=== PATIENT | female | born 1950 | race Caucasian/White ===

== ENCOUNTER → 2023-08-08 07:34 | Outpatient (REF) | payer OTHER, SELFPAY ==
[2023-08-08 08:54] LABS: Hemoglobin 9.5 g/dL (12.0-16.0)
[2023-08-08 09:23] LABS: Blood Urea Nitrogen 49 mg/dl (7-17); Calcium 8.6 mg/dl (8.4-10.2); Carbon Dioxide 28 mmol/L (22-30); Chloride 103 mmol/L (98-107); Glucose 42 mg/dl (70-99); Iron 47 ug/dl (37-170); Percent Saturation 14 % (20-50); Phosphorus 5.1 mg/dl (2.5-4.5); Potassium 4.4 mmol/L (3.5-5.1); Sodium 142 mmol/L (135-145); Total Iron Binding Capacity 327 ug/dl (265-497); eGFR 22.03
[2023-08-08 11:26] LABS: Ferritin 19.1 ng/ml (11.1-264.0)
[2023-08-09 10:26] LABS: Intact PTH 29.2 pg/ml (13.6-85.8)
== END ==
LOC: REG 07:34
PROVIDERS: ATTENDING PHYSICIAN Specialist
DX: N18.4 Chronic kidney disease, stage 4 (severe) (principal); D64.9 Anemia, unspecified
CPT/HCPCS: 36415; 80048; 82728; 83540; 83550; 83970; 84100; 85018

== ENCOUNTER → 2023-10-07 09:22 | Outpatient (REF) | payer OTHER, SELFPAY | LOC: RAD 09:22 | PROVIDERS: ATTENDING PHYSICIAN Family Medicine; OTHER PHYSICIAN Urology | DX: N13.1 Hydronephrosis with ureteral stricture, not elsewhere classified (principal); Z90.5 Acquired absence of kidney | CPT/HCPCS: 76775 ==

== ENCOUNTER → 2024-05-24 09:56 | Outpatient (REF) | payer OTHER, SELFPAY | LOC: RAD 09:56 | PROVIDERS: ATTENDING PHYSICIAN Urology; FAMILY PHYSICIAN Family Medicine | DX: R31.0 Gross hematuria (principal) | CPT/HCPCS: 74176 ==

== ENCOUNTER → 2024-07-20 07:27 | Outpatient (REF) | payer OTHER, SELFPAY ==
[2024-07-20 08:20] LABS: % Basophils 0.5 % (0-2); % Eosinophils 2.7 % (0-6); % Immature Granulocytes 0.5 % (0-0.5); % Lymphocytes 7.6 % (20.5-51.1); % Monocytes 6.9 % (1.7-9.3); % Neutrophils 81.8 % (42.2-75.2); Absolute Eosinophils 0.2 10^3/uL (0-0.7); Absolute Lymphocytes 0.6 10^3/uL (1.2-3.4); Absolute Monocytes 0.5 10^3/uL (0.1-0.6); Hematocrit 27.8 % (37.0-47.0); Hemoglobin 8.3 g/dL (12.0-16.0); Mean Corp Hgb Conc. 29.9 g/dL (33.0-37.0); Mean Corpuscular Hgb 27.9 pg (27.0-31.0); Mean Corpuscular Volume 93.6 fL (81.0-99.0); Mean Platelet Volume 10.5 fL (7.4-10.4); Nucleated Red Blood Cells % 0 %; Platelet Count 196 10^3/uL (130-400); Red Blood Cell Count 2.97 10^6/uL (4.20-5.40); Red Cell Dist. Width 15.2 % (11.5-14.5); White Blood Cell Count 7.3 10^3/uL (4.8-10.8)
[2024-07-20 08:24] LABS: INR 1.09; PT 14.5 Sec (11.4-14.6)
[2024-07-20 08:25] LABS: APTT 34.3 Sec (23.4-35.0)
[2024-07-20 09:11] LABS: ALT (SGPT) 22 U/L (0-35); AST (SGOT) 21 U/L (14-36); Alkaline Phosphatase 95 U/L (38-126); Blood Urea Nitrogen 42 mg/dl (7-17); Calcium 7.4 mg/dl (8.4-10.2); Chloride 104 mmol/L (98-107); Glucose 154 mg/dl (70-99); Iron 70 ug/dl (37-170); Sodium 142 mmol/L (135-145); Total Bilirubin 0.3 mg/dl (0.2-1.3)
[2024-07-20 09:20] LABS: Percent Saturation 22 % (20-50); Total Iron Binding Capacity 310 ug/dl (265-497)
[2024-07-20 09:21] LABS: Albumin 3.7 g/dl (3.5-5.0); Carbon Dioxide 28 mmol/L (22-30)
[2024-07-20 09:32] LABS: CEA 1.03 ng/ml
[2024-07-20 09:34] LABS: Ferritin 14.6 ng/ml (11.1-264.0)
[2024-07-20 10:05] LABS: Folate 11.3 ng/ml (2.76-20); Vitamin B12 960 pg/ml (239-931)
[2024-07-20 12:45] LABS: Glycohemoglobin (HgbA1c) 7.1 % (4.0-5.6)
== END ==
LOC: REG 07:27
PROVIDERS: ATTENDING PHYSICIAN Obstetrics & Gynecology Gynecologic Oncology; FAMILY PHYSICIAN Family Medicine
DX: C64.1 Malignant neoplasm of right kidney, except renal pelvis (principal); C51.0 Malignant neoplasm of labium majus; C18.2 Malignant neoplasm of ascending colon
CPT/HCPCS: 36415; 80053; 82378; 82607; 82728; 82746; 83036; 83540; 83550; 85025; 85610; 85730

== ENCOUNTER → 2024-08-13 11:55 | Outpatient (REF) | payer OTHER, SELFPAY ==
[2024-08-13 11:27] LABS: % Basophils 0.3 % (0-2); % Eosinophils 2.4 % (0-6); % Immature Granulocytes 0.2 % (0-0.5); % Lymphocytes 6.9 % (20.5-51.1); % Monocytes 8.3 % (1.7-9.3); % Neutrophils 81.9 % (42.2-75.2); Absolute Eosinophils 0.2 10^3/uL (0-0.7); Absolute Lymphocytes 0.5 10^3/uL (1.2-3.4); Absolute Monocytes 0.6 10^3/uL (0.1-0.6); Absolute Neutrophils 5.4 10^3/uL (1.4-6.5); Hematocrit 27.2 % (37.0-47.0); Hemoglobin 8.3 g/dL (12.0-16.0); Mean Corp Hgb Conc. 30.5 g/dL (33.0-37.0); Mean Corpuscular Hgb 28.7 pg (27.0-31.0); Mean Corpuscular Volume 94.1 fL (81.0-99.0); Mean Platelet Volume 9.9 fL (7.4-10.4); Platelet Count 197 10^3/uL (130-400); Red Blood Cell Count 2.89 10^6/uL (4.20-5.40); White Blood Cell Count 6.6 10^3/uL (4.8-10.8)
[2024-08-13 12:54] LABS: Phosphorus 4.2 mg/dl (2.5-4.5)
== END ==
LOC: OIDL 11:55
PROVIDERS: ATTENDING PHYSICIAN Internal Medicine Hematology & Oncology
DX: C64.1 Malignant neoplasm of right kidney, except renal pelvis (principal); C51.0 Malignant neoplasm of labium majus; C18.2 Malignant neoplasm of ascending colon
CPT/HCPCS: 84100; 85025

== ENCOUNTER 2024-09-11 06:06 | Inpatient (IN) | payer OTHER, SELFPAY ==
[2024-09-03 11:27] LABS: Hematocrit 31.1 % (37.0-47.0); Hemoglobin 9.2 g/dL (12.0-16.0); Mean Corp Hgb Conc. 29.6 g/dL (33.0-37.0); Mean Corpuscular Hgb 29.1 pg (27.0-31.0); Mean Corpuscular Volume 98.4 fL (81.0-99.0); Mean Platelet Volume 10.3 fL (7.4-10.4); Platelet Count 185 10^3/uL (130-400); Red Blood Cell Count 3.16 10^6/uL (4.20-5.40); Red Cell Dist. Width 16.5 % (11.5-14.5)
[2024-09-03 11:49] LABS: Iron 65 ug/dl (37-170)
[2024-09-03 12:00] LABS: Percent Saturation 23 % (20-50); Total Iron Binding Capacity 281 ug/dl (265-497)
[2024-09-03 12:31] LABS: % Basophils 0.6 % (0-2); % Eosinophils 2.6 % (0-6); % Immature Granulocytes 0.4 % (0-0.5); % Lymphocytes 7.7 % (20.5-51.1); % Monocytes 7.3 % (1.7-9.3); % Neutrophils 81.4 % (42.2-75.2); Absolute Eosinophils 0.2 10^3/uL (0-0.7); Absolute Lymphocytes 0.5 10^3/uL (1.2-3.4); Absolute Monocytes 0.5 10^3/uL (0.1-0.6); Absolute Neutrophils 5.7 10^3/uL (1.4-6.5); Nucleated Red Blood Cells % 0 %
[2024-09-03 14:08] VITALS: BMI 39.2
--- NOTE | 2024-09-10 22:32 | W.CON.GYNONC ---
Chief Complaint
-
Vulvar Ca
History of Present Illness
This is a 73�year�old woman who was referred to me by Dr. Symone Espino for concern about possible cancer in vulva. Patient's
past medical history is complicated, and is significant for obesity, back pain, asthma, diabetes, GERD, as well as prior history of
colon cancer and kidney cancer.
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
thought she saw a perineal or vulver lesion sent her to us.
she is somewhat limited in her ability to ambulate or lay down due to orthopaedic issues, cannot lay flat, typically sleeps in recliner.
uses a walker to keep steady for ambulation.
Past Medical History
Hypertension n Diabetes, Type II
Spondylolisthesis
Colonic polyps
Kidney stones/ nephrolithiasis
DJD/arthritis
Hypercholesterolemia
Asthma
Depression
Glaucoma
Osteoporosis
Obesity
Right colon ca
Rigth Kidney cancer
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
Past Surgical History n Hysterectomy in 1992
Left bunionectomy in 1974
Right hand carpal tunnel surgery in 1996
Right oopherectomy in 1996
Bilateral knee surgery in 1999
Total right knee replacement in 2001
Rotator cuff repair in 2002
Total left knee replacement in 2003
R hemicolectomy
Right nephrectomy
Medications:
aspirin�81�mg�capsule 07/16/2024 0 1�p.o.�q.�day
carvedilol�25�mg�tablet 07/16/2024 0 1�p.o.�twice�a�day (BID) Y
cyanocobalamin�(vitamin�B�12)�1,000�mcg Tab 12/16/2011 30 3 1�p.o.�q.�day
ferrous�sulfate�325�mg�(65�mg�iron)/5�mL�oral solution 07/16/2024 0 1�p.o.�q.�day
furosemide�40�mg/5�mL�(8�mg/mL)�oral solution 07/16/2024 0 1�p.o.�q.�day
hydralazine�100�mg�tablet 07/16/2024 0 1�p.o.�three�times�a day�(TID)
hydrocodone�5�mg�acetaminophen�325�mg tablet 07/16/2024 0 4�x�daily
Lantus�100�unit/mL�Sub�Q 11/05/2011 0 25�units�daily
omeprazole�40�mg�Cap,�delayed�release 11/05/2011 0 1�p.o.�q.�day
ProAir�HFA�90�mcg/actuation�Aerosol�Inhaler 11/05/2011 0 1�p.o.�q.�day
Probiotic�10�billion�cell�Cap 11/05/2011 0 1�p.o.�q.�day
rosuvastatin�20�mg�tablet
Medical History
Allergies
Allergies reflect when allergies were last updated in [facility].
aspirin Allergy (Verified 09/04/24 08:27)
Upset stomach
atorvastatin Allergy (Verified 09/04/24 08:27)
hematuria
codeine Allergy (Verified 09/04/24 08:27)
Rash
levofloxacin [From Levaquin] Allergy (Verified 09/04/24 08:27)
large PO doses upset stomach - Can only take IV form
morphine [Morphine] Allergy (Verified 09/04/24 08:27)
vomiting
oxycodone HCl [From Percocet] Allergy (Verified 09/04/24 08:27)
Rash
Penicillins Allergy (Verified 09/04/24 08:27)
Rash, TOLERATES CEPHALOSPORINS
perfume Allergy (Verified 09/04/24 08:27)
Shortness of Breath
prednisone Allergy (Verified 09/04/24 08:27)
See comments
sulfamethoxazole Allergy (Verified 09/04/24 08:27)
Rash
theophylline Allergy (Verified 09/04/24 08:27)
rapid heart beat
trimethoprim [From Bactrim] Allergy (Verified 09/04/24 08:27)
Rash
Physical Exam
Physical Exam
Physical Exam
Pelvic Examination: functional support analyst present
with significant assistance we placed her in lithotomy position
External left anterior labia with 2�3 cm fungating erythematous lesion, likely squamous cell carcinoma, superficial ,
subcutaneous tissue below that is free, tumor is mobile no other obvious lesion in right labia or perineum, clitoris normal
Normall urethra, anus.
Vagina: Normal mucosa.
Cervix and uterus are absent
Adnexa: No pelvic mass on bimanual exam
RVE: no masses or nodularity
Patient appears comfortable, in no acute distress. Appears stated age.
Head atraumatic, normocephalic. Sclera anicteric, conjunctiva pink.
No cervical, supraclavicular or axillary adenopathy.
Heart rate and rhythm regular, no murmurs, rubs or gallops.
Lungs clear without rales or rhonchi. No kyphosis.
Abdomen soft and non�tender.
Extremities without clubbing, cyanosis or edema.
Gait and stature normal. Neurologic exam grossly non�focal, no hemiplegia.
Results
-
09/03/24 10:19
[facility]
[address] [place] [address]
[phone]
Patient Name: ASHLEY CEDILLO
: 1950
Unit Number: [id number]
Age/Sex: 73/F
Patient
Location: PET
Order Provider: Doroteo Griffith MD
Exam Service Date: 08/02/24

PET Scan Report
SignedOrder #:[id number]
Exams: PT Pet Wbi W/CT Skull-thigh
CPT: 54325
Procedure: PET/CT SKULL-THIGH (FDG)
IMPRESSION:
There is hypermetabolic activity of the vulva with a max SUV of 14.6 suspicious for vulvar malignancy.
There is a small focus of mild hypermetabolic activity along the skin in the right inguinal fold, however no discrete lesion is visualized. Findings may represent a superficial infectious/inflammatory process however recommend direct visualization.
There is a 1.1 cm subcutaneous nodule within the anterior abdominal wall in the left lower quadrant which demonstrates mild hypermetabolic activity with a max SUV of 3.9. This may represent a benign injection granuloma as this is not significantly
changed in size from prior CT.
There is mild hypermetabolic activity in the paraspinal musculature and bilateral pectoralis musculature which is likely related to muscle activity.
CLINICAL INDICATION: Right kidney cancer status post right nephrectomy. History of colon cancer in 2019. Possible vulva cancer The patient is undergoing a PET/CT examination for subsequent treatment strategy.
TECHNIQUE: A PET/CT examination was performed following the intravenous injection of 10.5 mCi F-18 FDG in the left antecubital fossa at 1027. Images were acquired from the level of the skull base to the level of the mid thighs. The blood glucose
level at the time of injection measured 116 mg/dL. Axial, sagittal, and coronal fused reformatted images were obtained. Low-dose CT images were acquired for attenuation correction purposes only. Automatic exposure control radiation dose reduction
technology was utilized.
COMPARISON: CT abdomen pelvis 05/24/2024
FINDINGS:
HEAD and NECK:
No suspicious FDG-avid lesions. There is FDG avidity within the cervical paraspinal musculature measuring up to 6.1 which is likely related to muscle activity, less likely strain.
CHEST:
MEDIASTINUM: No suspicious FDG-avid lesions.
LUNGS: No suspicious FDG-avid lesions.
Calcified hilar and mediastinal lymph nodes which may related to prior granulomatous infection.
Trace pericardial effusion. Moderate coronary artery calcifications.
ABDOMEN and PELVIS:
There is hypermetabolic activity along the lateral lobe with a max SUV of 14.6.
There is a small focus of hypermetabolic activity along the skin in the right inguinal fold which demonstrates a max SUV of 5.1. There is no discrete lesion (series 4 image 254).
There is a 1.1 cm subcutaneous nodule within the left lower quadrant anterior abdominal wall which demonstrates a max SUV of 3.9.
No suspicious intra-abdominal FDG-avid lesions.
Findings of likely prior right lower quadrant ostomy reversal. Prior partial colectomy. The right kidney is surgically absent with fat necrosis in the right renal fossa. There is rightward deviation of the intra-abdominal viscera likely secondary to
right renal fossa volume loss. Prior cholecystectomy. There is unchanged left adrenal nodule. SKELETON:
No suspicious FDG-avid lesions. Left total hip arthroplasty. Degenerative changes of the lumbar spine with fusion of L3-S1.
Electronically signed by Kirk Cancino MD, 08/02/2024 4:28 PM
Impression / Plan
-
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
Her PET CT scan does not reveal any obvious evidence of metastatic disease which is very reassuring
Patient was seen and evaluated by pulmonary medicine, noted to have dyspnea on exertion asthma with severe obesity. There is
moderate obstructive lung disease, no significant improvement in FEV1 postbronchodilator, there opinion is that the dyspnea on
exertion is likely multifactorial. After evaluation Flovent was discontinued, she uses albuterol inhaler excessively and often up to 5
times per day she was started on inhaled corticosteroid which would be on her formulary, she can decrease her albuterol HFA.
I recommend meeting with anesthesia in advance of the procedure
She is recently status post Injectafer x 2 doses for optimization of her hemoglobin. Repeat labs are being performed in September.
She would like to postpone the surgery until after her birthday, there is something psychological related to what happened to her
prior surgery that causing difficulty with scheduling surgery before then. She does feel like she can overcome this issue and may be
with a combination of IV sedation and local anesthesia and consideration of regional anesthesia she can undergo surgery
successfully.
[2024-09-11] VITALS (7 sets, daily range): BP systolic 119–178; BP diastolic 60–76; BMI 39.2; BMI 42.3
[2024-09-11] MEDS: NEURONTIN 300 MG PO (06:43)
[2024-09-11] MEDS: TYLENOL 1000 MG PO (06:43)
[2024-09-11] MEDS: HEPARIN 5000 UNITS SC (06:44)
[2024-09-11] MEDS: DUONEB 3 ML INH ×2 (06:56→19:26)
[2024-09-11 07:06] LABS: Glucose - Point of Care 53 mg/dl (70-99)
[2024-09-11] MEDS: DEXTROSE 50% SYRINGE 12.5 GRAMS IV (07:16)
--- NOTE | 2024-09-11 07:29 | PTCARENOTE ---
Patients IV was challenging to get in and she was stuck 4 times. One time by Graciela MEIER and 3 times by Ravindra Fink CRNA. Patients blood sugar was 52 and 1/2 amp of D50 given. Will monitor patient.
[2024-09-11] MEDS: NORMOSOL-R/PLASMALYTE-A 1000 IV (07:32)
[2024-09-11 08:12] LABS: Glucose - Point of Care 76 mg/dl (70-99)
[2024-09-11 09:21] LABS: Glucose - Point of Care 80 mg/dl (70-99)
--- NOTE | 2024-09-11 09:39 | OR.RPT ---
Operative Report
Operative Report
Date of procedure September 11, 2024
Preoperative diagnosis: left labia majora squamous cell carcinoma
Postoperative diagnosis: Same
Procedure: Left partial radical vulvectomy
Surgeon:Doroteo Griffith
Assist: Graham Gutierrez PA-C
The assistance of Harpal Gutierrez was required due to the complexity of the procedure. During the procedure Harpal Gutierrez assisted with retraction, resection, and closure of the wound.
Anesthesia: Spinal, monitored anesthetic care and local anesthesia
Estimated blood loss: 100 cc
Specimen: Left radical vulvectomy specimen suture at mons pubis, right anterior labia
Complication: None
Findings: Exam under anesthesia reveals a 2 x 3 cm ulcerated tumor involving left anterior labia majora, approximately 2 to 3 cm visible skin margin was removed on all directions, a separate flat raised white lesion was present on the right anterior
vulva which was excised. Urethra was completely without any involvement, anus was without any involvement. Vaginal canal was examined and there is no evidence of tumor involvement. Posterior aspects of both right and left labia majora are
unremarkable
Procedure in detail: This patient was taken to the operating room and placed in sitting position on the operating table, spinal anesthesia was administered by the anesthesia team. She was then placed in lithotomy position after appropriate IVs were
obtained and level of anesthesia was checked. The hair involving mons pubis and genital region was clipped, the skin was prepped with ChloraPrep and vagina was prepped with Betadine solution and the patient was draped. Timeout procedure was
carried out. She received 3 g of Ancef for prophylaxis. I went ahead and marked the skin approximately 2 to 3 cm in each direction anterior superior right and left lateral essentially arriving at normal skin in each direction. I injected a total
of 20 cc lidocaine and epinephrine along all incision lines. Next I used electrocautery to make the incision on the skin lateral and medial aspect of the lesion, I used hand-held voyant device to seal across multiple pedicles laterally down to
level of ischial tuberosity, anteriorly the entire shaft of the clitoris was removed down to the symphysis pubis and we came down to the level of urethra. Additionally pedicles on the medial side were sealed and divided using same vessel sealer
until the entire specimen was sealed and removed. After excision of the specimen I became aware of an additional flat white lesion involving anterior aspect of right labia and a separate specimen was excised urine fatty tissue below that was also
excised with it and submitted to pathology. There was evidence of bleeding involving anterior aspect of the urethra 3 separate [id number] sutures of 3-0 Vicryl was used to establish good hemostasis here. Following this we brought skin
together from right and left side using a series of 0 PDS sutures in a horizontal mattress fashion once the tissue was reapproximated I used a series of 2-0 Monocryl sutures to further reinforce the incision line again in horizontal mattress fashion
along the mons pubis right and left anterior labia and then the entire left vulva. Excellent hemostasis was obtained. I examined the vagina and the rectum at the completion of the procedure and there was no involvement or bleeding or injury. We
irrigated the skin, I injected a total of 20 cc 0.25% Marcaine along the incision line. Following this I went ahead and placed Silvadene cream on the incision and placed the dressing with Kerlix gauze over the incision and mesh panties were
applied. Please note that a Cosme catheter was placed for the duration of surgery and was removed at the completion of surgery. Patient was awake and returned back to recovery room stable awake and extubated condition.
This patient has significant comorbidities, prior to the surgery general anesthesia was advised against by pulmonary senior solutions consultant. I elected not to perform left inguinofemoral lymph node dissection and sentinel lymph node mapping in order to reduce
the duration of surgery to less than an hour so he could be performed under spinal anesthesia. I went ahead and note that her preoperative PET/CT scan was negative for any evidence of metastatic disease. Depending on the outcome of the surgery and
the final pathology decision may be made to return back to the operating room for right inguinofemoral lymph node dissection.
Counts of labs instruments and needle was correct x 2. I was present and scrubbed for entire procedure as dictated above
Disposition: To PACU awake alert extubated
[2024-09-11] MEDS: DILAUDID 0.5 MG IV ×4 (09:50→20:20)
[2024-09-11 10:17] LABS: Blood Urea Nitrogen 47 mg/dl (7-17); Calcium 7.7 mg/dl (8.4-10.2); Carbon Dioxide 31 mmol/L (22-30); Chloride 110 mmol/L (98-107); Estimated Creatinine Clearance 28 ml/min; Glucose 86 mg/dl (70-99); Potassium 4.6 mmol/L (3.5-5.1); Sodium 145 mmol/L (135-145); eGFR 20.68
[2024-09-11 10:22] LABS: Hematocrit 27.7 % (37.0-47.0); Hemoglobin 8.6 g/dL (12.0-16.0); Mean Corpuscular Hgb 30.5 pg (27.0-31.0); Mean Corpuscular Volume 98.2 fL (81.0-99.0); Mean Platelet Volume 10.4 fL (7.4-10.4); Platelet Count 176 10^3/uL (130-400); Red Blood Cell Count 2.82 10^6/uL (4.20-5.40); Red Cell Dist. Width 15.9 % (11.5-14.5); White Blood Cell Count 6.7 10^3/uL (4.8-10.8)
[2024-09-11] MEDS: PERCOCET 5/325 1 TABLET PO (12:07)
[2024-09-11] MEDS: TYLENOL 650 MG PO (12:10)
[2024-09-11 12:29] LABS: Glucose - Point of Care 119 mg/dl (70-99)
[2024-09-11] MEDS: LANTUS 0.1 UNITS SC (13:44)
--- NOTE | 2024-09-11 14:29 | HPS.HSE ---
Family Physician
-
Family Physician: Symone Espino
Chief Complaint
-
Postop care
History of Present Illness
73-year-old female past medical history of type 2 diabetes, hypertension DJD/arthritis, asthma, moderate obstructive lung disease with no significant improvement in FEV1 postbronchodilator dilator therapy, on 2 L O2 intermittently, depression,
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 Now admitted post left radical vulvectomy.
Preoperative PET/CT scan negative for any evidence of metastatic disease. Patient on minimal O2 at 2 L, and on and off inpatient. Patient's respiratory status stable, no shortness of breath or any symptoms. Tolerated extubation well. Only
complaint is pain at surgical site. Pain improved after urination. Glucose level mildly lower this morning, took half dose of her insulin yesterday evening.
Medical History
Past Medical History
Past Medical History: Reports Other (see below )
Additional Past Medical History:
morbid obesity, atrial fibrillation, coronary artery disease status post LAD stent, asthma, CHF, prior colon cancer status post colon resection, hyper lipidemia and hypertension, insulin-dependent diabetes mellitus, right ureteral stenosis with
chronic indwelling ureteral stent
Past Surgical History: Reports None
Social History
Tobacco: Non-smoker
Alcohol: None
Drug: None
Personal:
Family History
Family History: Not pertinent
Allergies / Home Medications
Allergies
Allergy/AdvReac Type Severity Reaction Status Date / Time
aspirin Allergy Upset Verified 09/11/24 06:29
stomach
atorvastatin Allergy hematuria Verified 09/11/24 06:29
codeine Allergy Rash Verified 09/11/24 06:29
levofloxacin [From Levaquin] Allergy large PO Verified 09/11/24 06:29
doses
upset
stomach -
Can only
take IV
form
morphine [Morphine] Allergy vomiting Verified 09/11/24 06:29
oxycodone HCl [From Percocet] Allergy Rash Verified 09/11/24 06:29
Penicillins Allergy Rash, Verified 09/11/24 06:29
TOLERATES
CEPHALOSPORINS
perfume Allergy Shortness Verified 09/11/24 06:29
of Breath
prednisone Allergy See Verified 09/11/24 06:29
comments
sulfamethoxazole Allergy Rash Verified 09/11/24 06:29
theophylline Allergy rapid Verified 09/11/24 06:29
heart beat
trimethoprim [From Bactrim] Allergy Rash Verified 09/11/24 06:29
Home Medications
pantoprazole 40 mg tablet,delayed release 40 mg PO DAILY Gastrointestinal issue 10/21/21
aspirin 81 mg chewable tablet 81 mg PO DAILY 30 days #30 tabs 02/18/22
carvedilol 25 mg tablet 25 mg PO BID Blood pressure 06/11/22
furosemide 40 mg tablet 40 mg PO DAILY Fluid retention/Swelling 06/11/22
Lactobacillus acidophilus 10 billion cell capsule (Probiotic) 10,000 mmu cells PO QPM 09/04/24
acetaminophen 500 mg tablet 1,000 mg PO Q6H PRN pain 09/04/24
albuterol sulfate 90 mcg/actuation aerosol inhaler 2 puff inhalation Q6H PRN asthma 09/04/24
biotin 1,000 mcg chewable tablet 1,000 mcg PO QPM 09/04/24
cholecalciferol (vitamin D3) 50 mcg (2,000 unit) capsule (Vitamin D3) 50 mcg PO QPM 09/04/24
fluticasone furoate 200 mcg/actuation blister powder for inhalation (Arnuity Ellipta) 1 inh inhalation DAILY 09/04/24
hydralazine 100 mg tablet 100 mg PO TID 09/04/24
hydrocodone 5 mg-acetaminophen 325 mg tablet 1 tab PO QID 09/04/24
insulin glargine 100 unit/mL (3 mL) subcutaneous pen (Lantus Solostar U-100 Insulin) 30 unit SC DAILY 09/04/24
insulin glargine 100 unit/mL (3 mL) subcutaneous pen (Lantus Solostar U-100 Insulin) 40 unit SC HS 09/04/24
mecobalamin (vitamin B12) 1,000 mcg chewable tablet (B12 Active) 1,000 mcg PO QPM 09/04/24
rosuvastatin 20 mg tablet 20 mg PO QPM 09/04/24
Allergy/Medication List:
as listed
Review of Systems
-
History Source: Patient
A 12 point ROS was completed and negative except as noted: Yes
Physical Exam
Vital Signs
Vital Signs
Temp Pulse Resp BP Pulse Ox
98.3 F 90 16 119/76 97
09/11/24 13:18 09/11/24 13:18 09/11/24 13:18 09/11/24 13:18 09/11/24 13:40
Physical Exam
General: No Apparent Distress
HEENT: NormoCephalic, Anicteric and Oxygen (2L NC )
Respiratory: Decreased Breath Sounds and Other (Mildly labored respirations)
Cardiac: S1/S2 and Regular Rhythm
Breast: Deferred by me
GI: Non Distended
Rectal: Deferred by Provider
Genito-urinary: Other (no involvement or bleeding or injury at site of intervention; dressing with Kerlix gauze over the incision and mesh panties were applied.)
Musculoskeletal: No Clubbing, No Cyanosis and No Edema
Skin: Warm
Neuro: Awake, Alert, Oriented and AO x 3
Hematologic/Lymphatic: No Lymphadenopathy
Psych: Calm
Laboratory Results
-
09/11/24 09:57
09/11/24 09:57
Data Reviewed
-
Lab Data: Labs Reviewed by me
Impression/Plan
-
IMPRESSION:
73-year-old female past medical history of type 2 diabetes, hypertension DJD/arthritis, asthma, moderate obstructive lung disease with no significant improvement in FEV1 postbronchodilator dilator therapy, on 2 L O2 intermittently, depression,
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 Now admitted post left radical vulvectomy.
PLAN:
#Post left radical vulvectomy
-as per Vp Software Support/Onc
-Pain control
-OOB, early ambulation as per surgery
-Cosme cath out
-Incentive Rod, Acapella
-BM regimen
#?STORMY/OHS
#Hypoxia
-Does not appear to be in overload at this time
-intermittently on O2 (2L at home), especially when sleeping
-wean o2 as tolerated; o2 goal >92%
-duonebs
-patient will bring in home inhaler
-Incentive Rod, Acapella
-Will need Sleep study outpt
#Diabetes
-10 lantus this morning
-resume back diet
-resume back home insulin dose tonight
#Morbid obesity due to excess calories
#CAD s/p LAD stent: Cont ASA/BB/statin
#Asthma = inhaler
#Chronic diastolic CHF: Cont lasix
#h/o colon cancer s/p colon resection
#Hyperlipidemia: Cont statin
#PAF: Cont Coreg. No AC with hemorrhagic cystitis
#Essential HTN: Cont Lasix/Coreg/Hydralazine
#DVT ppx
-Lovenox
[2024-09-11] MEDS: DUONEB INH (15:28)
[2024-09-11] MEDS: DILAUDID 1 MG IV ×2 (15:32→22:57)
[2024-09-11 16:58] LABS: Glucose - Point of Care 245 mg/dl (70-99)
[2024-09-11] MEDS: LOVENOX 30 MG SC (17:42)
[2024-09-11] MEDS: CRESTOR 20 MG PO (17:42)
[2024-09-11] MEDS: APRESOLINE 100 MG PO ×2 (17:42→21:33)
[2024-09-11] MEDS: NORCO 5/325 1 TABLET PO ×2 (17:42→21:33)
[2024-09-11] MEDS: VISBIOME 1 CAP PO (17:44)
[2024-09-11] MEDS: COREG 25 MG PO (19:59)
[2024-09-11 21:11] LABS: Glucose - Point of Care 366 mg/dl (70-99)
[2024-09-11 21:30] LABS: Hematocrit 25.5 % (37.0-47.0); Hemoglobin 7.8 g/dL (12.0-16.0); Mean Corp Hgb Conc. 30.6 g/dL (33.0-37.0); Mean Corpuscular Hgb 29.5 pg (27.0-31.0); Mean Corpuscular Volume 96.6 fL (81.0-99.0); Platelet Count 152 10^3/uL (130-400); Red Blood Cell Count 2.64 10^6/uL (4.20-5.40); Red Cell Dist. Width 15.8 % (11.5-14.5); White Blood Cell Count 8.8 10^3/uL (4.8-10.8)
[2024-09-11] MEDS: LANTUS 0.4 UNITS SC (21:33)
[2024-09-11] MEDS: NOVOLOG FLEXPEN 2 UNITS SC (22:07)
--- NOTE | 2024-09-11 23:29 | W.PN.GYNONC ---
Today's Communication
-
stop lovenox
trend cbc
transfuse 1 u prbc
Impression / Plan
-
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
pulmonary suggested we avoid general anesthesia and hence case was done under spinal.
She had baseline Hgb 8-9 range., hgb tonight was 7.8
I dont think she has lost any significant blood loss.
i suspect some venous oozing from periurethral region.
she has a complicated history and comorbidities, i am planning to just watch her. a return to explore her wound is probably more risky and will reguire general anethsia.
i will stop lovenox for now.
transfuse 1 u prbc
repeat and trend her Hgb
we will also keep a kerlex roll as pressure dressing against her perineum.
Doroteo Griffith MD
[phone]
Subjective / Interval History
-
POD 0 Left radical vulvectomy
i was notified by her RN earlier she had passage of clot x 2 when she went to bathroom
we checked cbc
VS are stable
Objective Data
-
Lab Results:
09/11/24 21:19
09/11/24 09:57
Physical Exam
Vital Signs / I&O
Vitals
Temp Pulse Resp BP Pulse Ox
98.3 F 92 16 178/74 97
09/11/24 23:00 09/11/24 23:00 09/11/24 23:00 09/11/24 23:00 09/11/24 23:00
I&O
09/09/24 09/10/24 09/11/24 09/12/24
06:59 06:59 06:59 06:59
Output Total 225 / 225
Balance -225 / -225
[2024-09-12] VITALS (13 sets, daily range): BP systolic 122–178; BP diastolic 60–90; PULSE 83; O2SAT 98; BMI 42.6
[2024-09-12] MEDS: ROXICODONE 5 MG PO (01:46)
[2024-09-12] MEDS: DILAUDID 1 MG IV ×2 (04:20→20:40)
[2024-09-12 05:34] LABS: Hematocrit 26.3 % (37.0-47.0); Mean Corp Hgb Conc. 30.4 g/dL (33.0-37.0); Mean Corpuscular Hgb 29.3 pg (27.0-31.0); Mean Corpuscular Volume 96.3 fL (81.0-99.0); Mean Platelet Volume 10.1 fL (7.4-10.4); Platelet Count 162 10^3/uL (130-400); Red Blood Cell Count 2.73 10^6/uL (4.20-5.40); Red Cell Dist. Width 16.1 % (11.5-14.5); White Blood Cell Count 7.8 10^3/uL (4.8-10.8)
[2024-09-12 05:36] LABS: % Basophils 0.1 % (0-2); % Immature Granulocytes 0.4 % (0-0.5); % Lymphocytes 4.9 % (20.5-51.1); % Monocytes 7.8 % (1.7-9.3); % Neutrophils 86.8 % (42.2-75.2); Absolute Lymphocytes 0.4 10^3/uL (1.2-3.4); Absolute Monocytes 0.6 10^3/uL (0.1-0.6); Absolute Neutrophils 6.7 10^3/uL (1.4-6.5); Hematocrit 25.1 % (37.0-47.0); Hemoglobin 7.9 g/dL (12.0-16.0); Mean Corp Hgb Conc. 31.5 g/dL (33.0-37.0); Mean Corpuscular Hgb 30.3 pg (27.0-31.0); Mean Corpuscular Volume 96.2 fL (81.0-99.0); Mean Platelet Volume 10.5 fL (7.4-10.4); Nucleated Red Blood Cells % 0 %; Platelet Count 156 10^3/uL (130-400); Red Blood Cell Count 2.61 10^6/uL (4.20-5.40); Red Cell Dist. Width 15.9 % (11.5-14.5); White Blood Cell Count 7.7 10^3/uL (4.8-10.8)
[2024-09-12 05:59] LABS: ALT (SGPT) 11 U/L (0-35); AST (SGOT) 16 U/L (14-36); Albumin 2.8 g/dl (3.5-5.0); Alkaline Phosphatase 72 U/L (38-126); Blood Urea Nitrogen 47 mg/dl (7-17); Calcium 7.6 mg/dl (8.4-10.2); Carbon Dioxide 30 mmol/L (22-30); Chloride 107 mmol/L (98-107); Estimated Creatinine Clearance 29 ml/min; Glucose 217 mg/dl (70-99); Potassium 4.8 mmol/L (3.5-5.1); Sodium 141 mmol/L (135-145); Total Bilirubin 0.4 mg/dl (0.2-1.3); Total Protein 5.1 g/dl (6.3-8.2); eGFR 21.76
--- NOTE | 2024-09-12 06:12 | PTCARENOTE ---
Pt passing numerous size blood clots. surgeon Dr. romero made aware. 1 unit PRBC given.
[2024-09-12 06:59] LABS: Glucose - Point of Care 187 mg/dl (70-99)
[2024-09-12] MEDS: DUONEB 3 ML INH ×2 (07:04→16:37)
--- NOTE | 2024-09-12 07:40 | W.PN.GYNONC ---
Today's Communication
-
cbc this afternoon
consider another unit prbc
Impression / Plan
-
POD 1 left radical vulvectomy for squamous cell carcinoma
Patient has multiple comorbidities including chronic kidney disease
Overnight she received 1 unit of packed red blood cell, hemoglobin is 8. She also has chronic anemia.
Her current anemia is likely due to combination of acute surgical blood loss as well as chronic anemia
I recommend holding on enoxaparin, it may be reasonable to use heparin 5000 units subcutaneous twice daily and sequential compression devices on lower extremity
I recommend against using aspirin or NSAIDs altogether
Repeat CBC this afternoon
Consider 1 additional unit of blood transfusion
Patient should have physical therapy for evaluation of safety for return back to home
Doroteo Griffith MD
[phone]
Subjective / Interval History
-
She looks well this morning, complains of hip and back pain. Surgical site is sore but is not painful
She has been able to ambulate with a walker to the bathroom to void overnight
She does report passage of small clots per her incision on the vulva
Objective Data
-
Lab Results:
09/12/24 05:25
09/12/24 05:25
Physical Exam
Vital Signs / I&O
Vitals
Temp Pulse Resp BP Pulse Ox
98.3 F 83 16 175/73 99
09/12/24 07:31 09/12/24 07:31 09/12/24 07:31 09/12/24 07:31 09/12/24 07:31
I&O
09/10/24 09/11/24 09/12/24 09/13/24
06:59 06:59 06:59 06:59
Intake Total 1210 / 1210
Output Total 225 / 225
Balance 985 / 985
Physical Exam
General: Well Developed and No Apparent Distress
Respiratory: Clear and Non Labored Respirations
Cardiac: S1/S2 and Regular Rhythm
GI: Soft and Non Tender
External Genitalia: Other (Incision of vulvectomy is intact with sutures, small amount of blood clot on the edges of the incision is present. I placed pressure over the entire vulva and I cannot express any significant amount of clots. I did not
see any active bright red bleeding)
Musculoskeletal: No Clubbing, No Cyanosis and No Edema
Neuro: Awake, Alert and Oriented
[2024-09-12] MEDS: LASIX 40 MG PO (08:27)
[2024-09-12] MEDS: LOW STRENGTH ASPIRIN 81 MG PO (08:28)
[2024-09-12] MEDS: PROTONIX 40 MG PO (08:28)
[2024-09-12] MEDS: NORCO 5/325 1 TABLET PO ×4 (08:28→22:51)
[2024-09-12] MEDS: COREG 25 MG PO ×2 (08:28→20:27)
[2024-09-12] MEDS: LANTUS 0.3 UNITS SC (08:28)
[2024-09-12] MEDS: APRESOLINE 100 MG PO ×3 (08:28→22:51)
--- NOTE | 2024-09-12 10:14 | CM ---
Addendum entered by Rosamaria Bustamante RN 09/12/24 13:10:
CM confirmed that patient will need portable oxygen for transportation home. CM spoke with patient and she will update her daughter that she needs to bring the portable oxygen for transport home. CM updated bedside RN with plan.
PLAN: Home with [facility]
Original Note:
CM met with patient in room. Patient confirmed demographics. Patient lives alone, but stated that she has her children to provide support. Patient has been known to [facility] and would like referral post operatively. CM updated [facility] admissions nurse RN with
new referral. Patient has been to SNF, but cannot remember the name of the SNF. Patient stated 'somewhere in [place]'. Patient is also known to [facility]. Patient confirmed she has a cane, walker, and grab bars available for assistance.
Patient has oxygen prn, but does not know the name of the DME company. Patient stated that her PCP set up her oxygen. CM will watch for oxygen needs has patient progresses. Patient's PCP is Dr. Gupta. Patient has medication coverage and uses [facility]
in [place].
PLAN: home with [facility] and [facility], watch for increasing oxygen needs.
--- NOTE | 2024-09-12 10:41 | VNURNOTE ---
Restaurant Assistant Manager met with patient to discuss [facility] nurse/therapy, visits, schedule and homebound status. Patient is agreeable and understands that visits at home will be 2-3 x per week to assess and teach medical management.
[facility] contact information provided. Patient is aware that [facility] will contact them for start of care after discharge from .
[facility] referral completed in [facility].
[2024-09-12 11:20] LABS: Glucose - Point of Care 200 mg/dl (70-99)
[2024-09-12] MEDS: DUONEB INH ×2 (11:21→15:28)
--- NOTE | 2024-09-12 12:29 | W.PN.HOSP.TC ---
Today's Communication/Plan
-
monitor cbc this afternoon
O2 as needed
f/u pulm for PFTs, Sleep study outpt
F/u close cbc outpt
F/y Special Needs Caregiver/Onc, Onc, Renal, Pulmonary, Cardiology, PCP outpt
Assessment / Plan
Assessment / Plan
Physical Exam
General: No Apparent Distress
HEENT: NormoCephalic, Anicteric and Oxygen (2L NC )
Respiratory: Decreased Breath Sounds and Other (Mildly labored respirations)
Cardiac: S1/S2 and Regular Rhythm
Breast: Deferred by me
GI: Non Distended
Rectal: Deferred by Provider
Genito-urinary: Other (no involvement or bleeding or injury at site of intervention; dressing with Kerlix gauze over the incision and mesh panties were applied.)
Musculoskeletal: No Clubbing, No Cyanosis and No Edema
Skin: Warm
Neuro: Awake, Alert, Oriented and AO x 3
Hematologic/Lymphatic: No Lymphadenopathy
Psych: Calm
73-year-old female past medical history of type 2 diabetes, hypertension DJD/arthritis, asthma, moderate obstructive lung disease with no significant improvement in FEV1 postbronchodilator dilator therapy, on 2 L O2 intermittently, depression,
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 Now admitted post left radical vulvectomy.
PLAN:
#Post left radical vulvectomy
-as per Special Needs Caregiver/Onc
-Pain control
-OOB, early ambulation as per surgery
-Cosme cath out
-Incentive [place], Acapella
-BM regimen
#Acute on Chronic v Chronic Anemia
-clotting s/p procedure -�suspect perioperative blood loss
-s/p 1u pRBC by Special Needs Caregiver/Onc
-F/u CBC at 1 pm
-Hemodynamic stable
� Can hold on Lovenox for now
� Continue aspirin, cleared by PROFESSOR OF COUNSELING/ONC�prefer to keep on due to history of PCI
-monitor cbc
-defer to Special Needs Caregiver/Onc on ability to dc with close cbc/f/u
-F/u renal outpatient for EPI
-avoid NSAIDS
#?STORMY/OHS
#Hypoxia, chronic
-Does not appear to be in overload at this time
-intermittently on O2 (2L at home), especially when sleeping
-wean o2 as tolerated; o2 goal >92%
-duonebs
-patient will bring in home inhaler
-Incentive [place], Acapella
-Will need Sleep study outpt
-PFTs outpatient
#Diabetes
-resume back diet
-resume back home insulin dose tonight
#Chronic Anemia
-f/u nephro outpatient
-received ?Epo outpatient as per pt
#Morbid obesity due to excess calories
#CAD s/p LAD stent: Cont ASA/BB/statin
#Asthma = inhaler
#Chronic diastolic CHF: Cont lasix
#h/o colon cancer s/p colon resection
#Hyperlipidemia: Cont statin
#PAF: Cont Coreg. No AC with hemorrhagic cystitis
#Essential HTN: Cont Lasix/Coreg/Hydralazine
#DVT ppx
-Trial HSQ
More than 30 minutes spent in discharge including
Final examination of the patient
Summarizing hospital stay
Instructions for continuing care to all relevant caregivers
Preparation of discharge records, prescriptions, and referral forms
Total time spent (in minutes): 37
Anticipated Discharge: Today
Subjective/Interval History
-
Date of Service: September 12, 2024
clotting overnight, was given 1u prbc. Off o2
Objective Data
-
Labs:
Laboratory Results
04/09/25 04/09/25 04/09/25
05:25 05:25 05:25
WBC 7.8 7.7
Hgb 8.0 L 7.9 L
Hct 26.3 L
Plt Count
Sodium
Potassium
Chloride
Carbon Dioxide
BUN
Creatinine
Glucose
Calcium
Total Bilirubin
AST
ALT
Alkaline Phosphatase
09/12/24 09/12/24 09/12/24
05:25 05:25 13:00
WBC Pending
Hgb Pending
Hct 25.1 L Pending
Plt Count 162 156 Pending
Sodium 141
Potassium 4.8
Chloride 107
Carbon Dioxide 30
BUN 47 H
Creatinine 2.3 H
Glucose 217 H
Calcium 7.6 L
Total Bilirubin 0.4
AST 16
ALT 11
Alkaline Phosphatase 72
Vital Signs:
Vital Signs
Temp Pulse Resp BP Pulse Ox
98.7 F 83 16 141/69 98
09/12/24 11:00 09/12/24 11:00 09/12/24 11:00 09/12/24 11:00 09/12/24 11:00
I&O
09/11/24 09/12/24 09/13/24
06:59 06:59 06:59
Intake Total 1210 / 1210
Output Total 225 / 225
Balance 985 / 985
Review of Systems
-
History Source: Patient
All other systems: Not reviewed unless documented
Physical Exam
-
General: Morbidly Obese
HEENT: Normocephalic
Respiratory: Clear to Auscultation
Cardiac: Regular Rhythm
GI: Soft and Nontender
Genito-urinary: No Costovertebral Tender
Psych: Calm
Data Reviewed
-
Total Time Spent with Patient (in minutes): 40
Labs: Labs Reviewed by me (Gross dropped to 7.4/creat. 2.4)
[2024-09-12 13:36] LABS: Hematocrit 23.7 % (37.0-47.0); Hemoglobin 7.4 g/dL (12.0-16.0); Mean Corp Hgb Conc. 31.2 g/dL (33.0-37.0); Mean Platelet Volume 10.1 fL (7.4-10.4); Platelet Count 154 10^3/uL (130-400); Red Blood Cell Count 2.47 10^6/uL (4.20-5.40); Red Cell Dist. Width 16.4 % (11.5-14.5); White Blood Cell Count 7.5 10^3/uL (4.8-10.8)
[2024-09-12 16:40] LABS: Glucose - Point of Care 187 mg/dl (70-99)
[2024-09-12 17:36] LABS: INR 1.12
[2024-09-12 17:37] LABS: APTT 31.4 Sec (23.4-35.0)
[2024-09-12] MEDS: VISBIOME 1 CAP PO (17:56)
[2024-09-12] MEDS: CRESTOR 20 MG PO (17:56)
[2024-09-12 22:11] LABS: Glucose - Point of Care 250 mg/dl (70-99)
[2024-09-12] MEDS: LANTUS 0.4 UNITS SC (22:51)
[2024-09-13] VITALS (7 sets, daily range): BP systolic 112–158; BP diastolic 55–68; BMI 42.5
[2024-09-13 00:33] LABS: Hematocrit 23.8 % (37.0-47.0); Hemoglobin 7.7 g/dL (12.0-16.0); Mean Corp Hgb Conc. 32.4 g/dL (33.0-37.0); Mean Corpuscular Hgb 30.8 pg (27.0-31.0); Mean Corpuscular Volume 95.2 fL (81.0-99.0); Mean Platelet Volume 10.5 fL (7.4-10.4); Platelet Count 131 10^3/uL (130-400); Red Cell Dist. Width 16.1 % (11.5-14.5); White Blood Cell Count 7.6 10^3/uL (4.8-10.8)
[2024-09-13] MEDS: ROXICODONE 5 MG PO (02:27)
[2024-09-13 07:10] LABS: Glucose - Point of Care 123 mg/dl (70-99)
[2024-09-13 07:19] LABS: Hemoglobin 7.4 g/dL (12.0-16.0); Mean Corp Hgb Conc. 30.8 g/dL (33.0-37.0); Mean Corpuscular Hgb 29.5 pg (27.0-31.0); Mean Corpuscular Volume 95.6 fL (81.0-99.0); Mean Platelet Volume 10.5 fL (7.4-10.4); Platelet Count 145 10^3/uL (130-400); Red Blood Cell Count 2.51 10^6/uL (4.20-5.40)
[2024-09-13 07:57] LABS: Blood Urea Nitrogen 53 mg/dl (7-17); Calcium 7.4 mg/dl (8.4-10.2); Carbon Dioxide 30 mmol/L (22-30); Chloride 107 mmol/L (98-107); Estimated Creatinine Clearance 28 ml/min; Glucose 143 mg/dl (70-99); Potassium 4.6 mmol/L (3.5-5.1); Sodium 142 mmol/L (135-145); eGFR 20.68
--- NOTE | 2024-09-13 08:39 | W.PN.GYNONC ---
Today's Communication
-
.
Impression / Plan
-
POD 1 left radical vulvectomy for squamous cell carcinoma
Patient has multiple comorbidities including chronic kidney disease
Overnight she received 1 unit of packed red blood cell, hemoglobin is 8. She also has chronic anemia.
Her current anemia is likely due to combination of acute surgical blood loss as well as chronic anemia
I recommend holding on enoxaparin, it may be reasonable to use heparin 5000 units subcutaneous twice daily and sequential compression devices on lower extremity
I recommend against using aspirin or NSAIDs altogether
Repeat CBC this afternoon
Consider 1 additional unit of blood transfusion
Patient should have physical therapy for evaluation of safety for return back to home
Doroteo Griffith MD
[phone]
POD 2- left radical vulvectomy for squamous cell carcinoma
she is improving, bleeding has stopped. hemoglobin is stable
will review with Dr Griffith about discharge plan
Subjective / Interval History
-
POD #2
She is feeling better this morning pain is better bleeding has been less over night. Was up yesterday with PT and walking. no problems with diet or urination. Feels she is ready to go home since the bleeding has stopped
Objective Data
-
Lab Results:
09/13/24 05:40
09/13/24 05:40
Physical Exam
Vital Signs / I&O
Vitals
Temp Pulse Resp BP Pulse Ox
98.2 F 77 16 149/68 98
09/13/24 07:00 09/13/24 07:00 09/13/24 07:00 09/13/24 07:00 09/13/24 07:00
I&O
09/11/24 09/12/24 09/13/24 09/14/24
06:59 06:59 06:59 06:59
Intake Total 1210 / 1210 740 / 740
Output Total 225 / 225
Balance 985 / 985 740 / 740
Physical Exam
no active bleeding from incision small amount of old blood on pad Pad was placed 4 hours ago. No drainage expressed from incision.
Musculoskeletal: No Edema
Data Reviewed
-
Lab Data: Labs Reviewed and Discussed with Physician
[2024-09-13] MEDS: LOW STRENGTH ASPIRIN 81 MG PO (09:46)
[2024-09-13] MEDS: LASIX 40 MG PO (09:46)
[2024-09-13] MEDS: PROTONIX 40 MG PO (09:46)
[2024-09-13] MEDS: NORCO 5/325 1 TABLET PO ×2 (09:46→21:10)
[2024-09-13] MEDS: APRESOLINE 100 MG PO ×3 (09:46→21:13)
[2024-09-13] MEDS: COREG 25 MG PO ×2 (09:46→20:26)
[2024-09-13] MEDS: LANTUS 0.3 UNITS SC (09:47)
[2024-09-13] MEDS: DILAUDID 1 MG IV ×2 (11:10→17:15)
[2024-09-13 12:27] LABS: Glucose - Point of Care 175 mg/dl (70-99)
[2024-09-13] MEDS: NORCO 5/325 PO ×2 (13:00→17:15)
--- NOTE | 2024-09-13 13:04 | W.PN.HOSP.TC ---
Addendum entered and electronically signed by Basilio Phillips MD 09/14/24 17:11:
[id number]
Original Note:
Today's Communication/Plan
-
monitor hgb
Assessment / Plan
Assessment / Plan
Physical Exam
General: No Apparent Distress
HEENT: NormoCephalic, Anicteric and Oxygen (2L NC )
Respiratory: Decreased Breath Sounds and Other (Mildly labored respirations)
Cardiac: S1/S2 and Regular Rhythm
Breast: Deferred by me
GI: Non Distended
Rectal: Deferred by Provider
Genito-urinary: Other (no involvement or bleeding or injury at site of intervention; dressing with Kerlix gauze over the incision and mesh panties were applied.)
Musculoskeletal: No Clubbing, No Cyanosis and No Edema
Skin: Warm
Neuro: Awake, Alert, Oriented and AO x 3
Hematologic/Lymphatic: No Lymphadenopathy
Psych: Calm
73-year-old female past medical history of type 2 diabetes, hypertension DJD/arthritis, asthma, moderate obstructive lung disease with no significant improvement in FEV1 postbronchodilator dilator therapy, on 2 L O2 intermittently, depression,
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 Now admitted post left radical vulvectomy.
PLAN:
#Post left radical vulvectomy
-as per Maintenance Machinist/Onc
-Pain control
-OOB, early ambulation as per surgery
-Cosme cath out
-Incentive [place], Acapella
-BM regimen
#Acute on Chronic v Chronic Anemia
-clotting s/p procedure -�suspect perioperative blood loss; now appears stabilized
-s/p 2u pRBC
-F/u CBC
-Hemodynamic stable
� Can hold on Lovenox for now
� Continue aspirin, cleared by PSYCHIATRIC THERAPIST/ONC�prefer to keep on due to history of PCI
-monitor cbc
-F/u renal outpatient for EPO
-avoid NSAIDS
#?STORMY/OHS
#Hypoxia, chronic
-Does not appear to be in overload at this time
-intermittently on O2 (2L at home), especially when sleeping
-wean o2 as tolerated; o2 goal >92%
-duonebs
-patient will bring in home inhaler
-Incentive [place], Acapella
-Will need Sleep study outpt
-PFTs outpatient
#Diabetes
-resume back diet
-resume back home insulin dose tonight
#Chronic Anemia
-f/u nephro outpatient
-received ?Epo outpatient as per pt
#Morbid obesity due to excess calories
#CAD s/p LAD stent: Cont ASA/BB/statin
#Asthma = inhaler
#Chronic diastolic CHF: Cont lasix
#h/o colon cancer s/p colon resection
#Hyperlipidemia: Cont statin
#PAF: Cont Coreg. No AC with hemorrhagic cystitis
#Essential HTN: Cont Lasix/Coreg/Hydralazine
#DVT ppx
-Holding HSQ for to possible acute blood loss anemia
Anticipated Discharge: Within 24 hours
Subjective/Interval History
-
Date of Service: September 13, 2024
Hemoglobin with appropriate spots, still in 7 range. No further significant bleeding
Objective Data
-
Labs:
Laboratory Results
09/13/24
05:40
WBC 6.0
Hgb 7.4 L
Hct 24.0 L
Plt Count 145
Sodium 142
Potassium 4.6
Chloride 107
Carbon Dioxide 30
BUN 53 H
Creatinine 2.4 H
Glucose 143 H
Calcium 7.4 L
Vital Signs:
Vital Signs
Temp Pulse Resp BP Pulse Ox
98.2 F 83 15 151/66 98
09/13/24 11:08 09/13/24 11:08 09/13/24 11:08 09/13/24 11:08 09/13/24 11:08
I&O
09/12/24 09/13/24 09/14/24
06:59 06:59 06:59
Intake Total 1210 / 1210 740 / 740 480 / 480
Output Total 225 / 225
Balance 985 / 985 740 / 740 480 / 480
Review of Systems
-
History Source: Patient
All other systems: Not reviewed unless documented
Data Reviewed
-
Total Time Spent with Patient (in minutes): 40
Labs: Labs Reviewed by me
--- NOTE | 2024-09-13 13:40 | CM ---
Chart reviewed; met with pt
Monitor HGB overnight; monitor O2 needs
Has transport home
[facility] to follow at d/c
Plan - anticipate home with [facility] when medically stable
[2024-09-13 13:59] LABS: INR 1.06; PT 14.3 Sec (11.4-14.6)
[2024-09-13 14:00] LABS: APTT 30.1 Sec (23.4-35.0)
[2024-09-13] MEDS: DUONEB 3 ML INH ×2 (15:54→19:37)
[2024-09-13] MEDS: VISBIOME 1 CAP PO (17:12)
[2024-09-13] MEDS: CRESTOR 20 MG PO (17:13)
[2024-09-13 17:23] LABS: Glucose - Point of Care 89 mg/dl (70-99)
[2024-09-13 21:52] LABS: Glucose - Point of Care 181 mg/dl (70-99)
[2024-09-13] MEDS: LANTUS 0.4 UNITS SC (22:05)
[2024-09-13] MEDS: DILAUDID 0.5 MG IV (22:12)
[2024-09-14 03:00] VITALS: BP 141/62
[2024-09-14] MEDS: ROXICODONE 5 MG PO (03:05)
[2024-09-14] MEDS: SENOKOT-S 1 TABLET PO (03:05)
[2024-09-14 05:29] LABS: Glucose - Point of Care 73 mg/dl (70-99)
[2024-09-14] MEDS: DILAUDID 1 MG IV (05:45)
[2024-09-14 06:00] VITALS: BMI 42.3
[2024-09-14 06:55] VITALS: BP 130/67
[2024-09-14 07:04] LABS: Glucose - Point of Care 131 mg/dl (70-99)
[2024-09-14 07:40] LABS: Hematocrit 24.2 % (37.0-47.0); Hemoglobin 7.5 g/dL (12.0-16.0); Mean Corpuscular Hgb 30.2 pg (27.0-31.0); Mean Corpuscular Volume 97.6 fL (81.0-99.0); Mean Platelet Volume 10.2 fL (7.4-10.4); Platelet Count 157 10^3/uL (130-400); Red Blood Cell Count 2.48 10^6/uL (4.20-5.40); Red Cell Dist. Width 15.9 % (11.5-14.5); White Blood Cell Count 6.1 10^3/uL (4.8-10.8)
[2024-09-14 07:49] LABS: INR 1.08; PT 14.3 Sec (11.4-14.6)
[2024-09-14 07:50] LABS: APTT 32.3 Sec (23.4-35.0)
[2024-09-14 08:01] VITALS: BP 130/67
[2024-09-14 08:07] LABS: Blood Urea Nitrogen 57 mg/dl (7-17); Calcium 7.7 mg/dl (8.4-10.2); Carbon Dioxide 31 mmol/L (22-30); Chloride 106 mmol/L (98-107); Estimated Creatinine Clearance 27 ml/min; Glucose 84 mg/dl (70-99); Potassium 4.2 mmol/L (3.5-5.1); Sodium 143 mmol/L (135-145); eGFR 19.69
[2024-09-14] MEDS: LOW STRENGTH ASPIRIN 81 MG PO (08:39)
[2024-09-14] MEDS: LANTUS 0.3 UNITS SC (08:40)
[2024-09-14] MEDS: NORCO 5/325 1 TABLET PO ×2 (08:40→12:16)
[2024-09-14] MEDS: LASIX 40 MG PO (08:40)
[2024-09-14] MEDS: COREG 25 MG PO (08:41)
[2024-09-14] MEDS: PROTONIX 40 MG PO (08:41)
[2024-09-14] MEDS: APRESOLINE 100 MG PO (08:41)
--- NOTE | 2024-09-14 09:18 | W.PN.GYNONC ---
Today's Communication
-
can be discharge to home
Impression / Plan
-
POD 1 left radical vulvectomy for squamous cell carcinoma
Patient has multiple comorbidities including chronic kidney disease
Overnight she received 1 unit of packed red blood cell, hemoglobin is 8. She also has chronic anemia.
Her current anemia is likely due to combination of acute surgical blood loss as well as chronic anemia
I recommend holding on enoxaparin, it may be reasonable to use heparin 5000 units subcutaneous twice daily and sequential compression devices on lower extremity
I recommend against using aspirin or NSAIDs altogether
Repeat CBC this afternoon
Consider 1 additional unit of blood transfusion
Patient should have physical therapy for evaluation of safety for return back to home
Doroteo Griffith MD
[phone]
POD 2- left radical vulvectomy for squamous cell carcinoma
she is improving, bleeding has stopped. hemoglobin is stable
will review with Dr Griffith about discharge plan
POD 3- left radical vulvectomy for squamous cell carcinoma
she is healing well, bleeding is still controlled hemoglobin 7.5 after second unit of blood, denies any dizziness or sob
cont. oob
case discussed with Dr Griffith , she can be discharge to home and will need to follow up with us in 2 weeks
continue to follow internal medicine plan
Subjective / Interval History
-
POD 3 She is feeling better states no bleeding, less blood on pad when she goes to urinate. See more of it when she has been sitting upright on the end of the bed. She did have an episode of low blood sugar this morning which made her feel a
little dizzy but otherwise no complaints.
Objective Data
-
Lab Results:
09/14/24 06:19
09/14/24 06:19
Physical Exam
Vital Signs / I&O
Vitals
Temp Pulse Resp BP Pulse Ox
98.1 F 83 17 130/67 96
09/14/24 06:55 09/14/24 06:55 09/14/24 06:55 09/14/24 06:55 09/14/24 06:55
I&O
09/12/24 09/13/24 09/14/24 09/15/24
06:59 06:59 06:59 06:59
Intake Total 1210 / 1210 740 / 740 1140 / 1140 750 / 750
Output Total 225 / 225
Balance 985 / 985 740 / 740 1140 / 1140 750 / 750
Physical Exam
incision clean and dry no drainage from incision with expression.
Musculoskeletal: No Edema
Data Reviewed
-
Lab Data: Labs Reviewed and Discussed with Physician
--- NOTE | 2024-09-14 10:17 | CM ---
Poss d/c today
[facility] to follow
Daughter to transport home. Pt would like daughter to be present when d/c instructions reviewed
Plan - anticipate home with [facility]
[2024-09-14 11:00] VITALS: BP 139/85
[2024-09-14 11:46] LABS: Glucose - Point of Care 152 mg/dl (70-99)
[2024-09-14] MEDS: DUONEB 3 ML INH (12:23)
== END 2024-09-14 13:05 | disposition home health service (06) | DRG 746 ==
LOC: 2 SOUTH 06:06
PROVIDERS: ADMITTING PHYSICIAN Obstetrics & Gynecology Gynecologic Oncology; ATTENDING PHYSICIAN Internal Medicine; FAMILY PHYSICIAN Family Medicine; OTHER PHYSICIAN Internal Medicine Hematology & Oncology
PROC: 0UBMXZZ Excision of Vulva, External Approach (ICD-10-PCS; 2024-09-11)
PROC: 30233N1 Transfusion of Nonautologous Red Blood Cells into Peripheral Vein, Percutaneous Approach (ICD-10-PCS; 2024-09-12)
DX: C51.0 Malignant neoplasm of labium majus (principal); D62 Acute posthemorrhagic anemia; Z68.41 Body mass index [BMI] 40.0-44.9, adult; E66.2 Morbid (severe) obesity with alveolar hypoventilation; I13.0 Hypertensive heart and chronic kidney disease with heart failure and stage 1 through stage 4 chronic kidney disease, or unspecified chronic kidney disease; N18.4 Chronic kidney disease, stage 4 (severe); I50.32 Chronic diastolic (congestive) heart failure; E11.9 Type 2 diabetes mellitus without complications; I25.10 Atherosclerotic heart disease of native coronary artery without angina pectoris; I48.0 Paroxysmal atrial fibrillation; Z85.038 Personal history of other malignant neoplasm of large intestine; Z79.4 Long term (current) use of insulin; Z95.5 Presence of coronary angioplasty implant and graft
CPT/HCPCS: 88307; 88309; 36415; 80048; 80053; 82728; 82962; 83540; 83550; 85025; 85027; 85610; 85730; 86850; 86900; 86901; 86920; 88342; 94640; 97162; C1776; P9016